=== PATIENT | male | born 1990 | race Caucasian/White ===

== ENCOUNTER 2017-02-28 18:52 | Emergency (ER) | payer OTHER ==
[2017-02-28] MEDS ORDERED: Ondansetron INJ* 2 MG/ML VIAL IV ONE (20:51)
[2017-02-28 21:20] LABS: Hematocrit 46 % (42-52); Hemoglobin 16.2 g/dl (14.0-18.0); Mean Corpuscular HGB Conc 35 g/dl (31-36); Mean Corpuscular Hemoglobin 31 pg (27-31); Mean Corpuscular Volume 89 fL (80-94); Mean Platelet Volume 9 um3 (7.4-10.4); Red Blood Count 5.18 10^6/ul (4.0-5.4); Red Cell Distribution Width 12 % (10.5-15); White Blood Count 12.8 10^3/ul (3.5-10.8)
[2017-02-28] MEDS: NS 0.9% 1000 ML* 2,000 ML IV ONE ×2 (21:32→22:47)
[2017-02-28 21:35] LABS: Albumin 4.6 g/dL (3.2-5.2); BUN/Creatinine Ratio 17.1 (8-20); C Reactive Protein 1.32 mg/L (< 5.00); Calcium 9.9 mg/dL (8.6-10.3); EGFR African American 110.7 (>60); EGFR Non-African American 86.1 (>60); Globulin 2.8 g/dL (2-4); Magnesium 1.9 mg/dL (1.9-2.7); Potassium 3.1 mmol/L (3.5-5.0); Total Bilirubin 1.4 mg/dL (0.2-1.0); Total Protein 7.4 g/dL (6.4-8.9)
[2017-02-28] MEDS ORDERED: Potassium Chlor TAB* 20 MEQ TAB.ER PO ONE (22:07)
--- NOTE | 2017-02-28 22:27 | ED ---
I, DoctorNina, scribed for Shazia Alas MD on 02/28/17 at 2053 . GI/ HPI - HPI Summary HPI Summary: 26 year old male arrived to [facility] c/o constant nausea and vomiting for the past three days. He also reports diarrhea on the first day, but no other episodes of diarrhea since. He has been experiencing cramping abdominal pain (which he rated as 10/10) since onset as well. He recently had strep throat and used OTC medications to treat himself; reports that his step symptoms have since been resolved. He has no other pertinent PMHx and does not smoke. - History of Current Complaint Chief Complaint: EDNauseaVomitDiarrh Time Seen by Provider: 02/28/17 20:50 Stated Complaint: ABD PAIN/VOMITING Hx Obtained From: Patient Onset/Duration: Started Days Ago Timing: Constant Severity: Moderate Current Severity: Moderate Pain Intensity: 10 Location of Pain: Diffuse Pain Characteristics: Cramping Associated Signs and Symptoms: Positive: Nausea, Vomiting, Diarrhea, Abdominal Pain - Allergy/Home Medications Allergies/Adverse Reactions: Allergies Allergy/AdvReac Type Severity Reaction Status Date / Time Sulfa Antibiotics Allergy Airway Verified 02/28/17 19:19 Obstruction PMH/Surg Hx/FS Hx/Imm Hx Endocrine/Hematology History: Denies: Hx Diabetes Cardiovascular History: Denies: Hx Hypertension, Hx Myocardial Infarction Infectious Disease History: No Infectious Disease History: Denies: Traveled Outside the [place] in Last 30 Days - Family History Known Family History: Negative: Diabetes - Social History Occupation: Employed Full-time Lives: Alone Alcohol Use: Weekly Alcohol Amount: Tuesday/Tuesday Substance Use Type: Reports: Marijuana Substance Use Comment - Amount & Last Used: 02/27/2017 Smoking Status (MU): Former Smoker Review of Systems Negative: Fever Positive: Abdominal Pain, Vomiting, Diarrhea, Nausea All Other Systems Reviewed And Are Negative: Yes Physical Exam Triage Information Reviewed: Yes Vital Signs On Initial Exam: Initial Vitals Temp Pulse Resp BP Pulse Ox 97.9 F 96 20 117/80 100 02/28/17 19:14 02/28/17 19:14 02/28/17 19:14 02/28/17 19:14 02/28/17 19:14 Vital Signs Reviewed: Yes Appearance: Positive: Well-Appearing, No Pain Distress Skin: Positive: Warm, Skin Color Reflects Adequate Perfusion, Dry Eyes: Positive: EOMI, HAIMDA ENT: Positive: TMs normal, Other - mucous membranes Neck: Positive: Supple, Nontender Respiratory/Lung Sounds: Positive: Clear to Auscultation, Breath Sounds Present. Negative: Rales, Rhonchi, Wheezes Cardiovascular: Positive: RRR. Negative: Murmur, Rub Abdomen Description: Positive: Nontender, Soft. Negative: Distended, Guarding Bowel Sounds: Positive: Present Musculoskeletal: Positive: Strength/ROM Intact. Negative: Edema Left, Edema Right Neurological: Positive: Sensory/Motor Intact, Alert, Oriented to Person Place, Time, CN Intact II-III Psychiatric: Positive: Affect/Mood Appropriate - [place] Coma Scale Coma Scale Total: 15 Diagnostics - Vital Signs Vital Signs Temp Pulse Resp BP Pulse Ox 02/28/17 20:24 97.6 F 94 17 121/96 98 02/28/17 19:17 97.9 F 96 20 117/80 100 02/28/17 19:14 97.9 F 96 20 117/80 100 - Laboratory Lab Results: 20:17 - Group A Rapid Strep is Negative Result Diagrams: 02/28/17 21:12 02/28/17 21:12 Lab Statement: Any lab studies that have been ordered have been reviewed, and results considered in the medical decision making process. Re-Evaluation - Re-Evaluation First Eval Re-Evaluation Time: 22:12 Comment: Discussed lab results and possible treatment plan with pt. GIGU Course/Dx - Course Course Of Treatment: 26 yo male here with AGE (thought he might have had strep last week, strep here neg). Pt feels much better after one liter of normal saline, he is getting a second liter now, he is also getting potassium and already has zofran tabs for home - Diagnoses Provider Diagnoses: Gastroenteritis Discharge - Discharge Plan Condition: Stable Disposition: HOME The documentation as recorded by the Doctor rios Tahera accurately reflects the service I personally performed and the decisions made by me, Shazia Alas MD.
[2017-03-01 00:12] VITALS: BP 140/81
== END 2017-03-01 00:11 | disposition home or self-care (01) ==
LOC: ED 18:52
DX: K52.9 Noninfective gastroenteritis and colitis, unspecified (principal); Z87.891 Personal history of nicotine dependence; Z88.2 Allergy status to sulfonamides
CPT/HCPCS: 36415; 80053; 83690; 83735; 85025; 86140; 87651; 96360; 96374; 99282; A9270-GY; J2405